=== PATIENT | female | born 1970 | race Caucasian/White ===

== ENCOUNTER → 2017-05-24 16:26 | Outpatient (CLI) | payer OTHER, SELFPAY ==
[2017-05-28 15:43] LABS: HPV Reflexed? NOT INDICATED
== END ==
PROVIDERS: Visit Provider Obstetrics & Gynecology
DX: Z12.4 Encounter for screening for malignant neoplasm of cervix (principal)
CPT/HCPCS: 88175; G0145

== ENCOUNTER 2019-04-23 05:56 | Emergency (ER) | payer OTHER, SELFPAY ==
[2019-04-23 05:56] VITALS: BP 123/59; PULSE 89; RESP 16; TEMP 36.7; O2SAT 96; BMI 35.6
--- NOTE | 2019-04-23 06:08 | CT_ITS ---
HISTORY: LLQ PAIN. Hx of rt oopherectomy. EXAMINATION: CT Abdomen And Pelvis W/O Contrast Injection TECHNIQUE: Helically acquired images were obtained of the abdomen and pelvis without oral or IV contrast as per renal stone protocol. A radiation dose optimization technique was used for this scan. IV Contrast dosage and agent: none Oral contrast: None. COMPARISON: None FINDINGS: Lower thorax: Clear. No pleural effusion or pericardial effusion. No radiopaque gallstones and no biliary dilatation. Limited non-infusion exam. Allowing for this, negative liver, spleen, and pancreas. Both kidneys show normal size and position. No renal or ureteral calculi and no hydronephrosis or hydroureter. The adrenal glands are not enlarged. Abdominal aorta is normal in caliber. No ascites or retroperitoneal lymph node enlargement. GI tract: No obstruction. Normal appendix. Anteverted uterus which is normal in size and tilts to the right. Enlarged left ovary which is lobulated in appearance and measures approximately 9.1 x 5.2 x 5.7 cm. Tiny free fluid within the posterior cul-de-sac. No lymph node enlargement. Poor distention of the urinary bladder. Bones: No acute osseous abnormality. L5 bilateral spondylolysis with secondary grade 1 spondylolisthesis of L5 on S1. Underlying L5 dish S1 degenerative disc disease with disc space narrowing and mild marginal spurring. CT/Abdomen/Pelvis without Cont IMPRESSION: 1. Lobulated, enlarged left ovary which measures up to 9.1 cm in maximal dimension. Tiny free pelvic fluid. Recommend further correlation with pelvic ultrasound including transvaginal ultrasound. 2. No additional significant findings. Normal appendix. Individualized dose optimization techniques were used for this CT. at 0708 Reported and signed by: Steve Guillen MD Electronically Signed: Steve Guillen, at 7:07 EDT Tel , Service support ,
--- NOTE | 2019-04-23 06:09 | ED.DCSUM_ITS ---
History of Present Illness Chief Complaint: Abd Pain Informant: Patient Narrative: Patient stated she developed left-sided lower abdominal pain yesterday. It is a deep dull ache. Moderate in severity. She tried ibuprofen. Associated mild nausea. No diarrhea. No history of diverticulitis or kidney stone. Hurts to push on her anterior stomach. History of unilateral oophorectomy in the past. No fevers or chills. Current severity is moderate. Denies . Past Medical History - Allergies and Home Meds Allergies/Adverse Reactions: Allergies No Known Allergies Allergy (Verified 04/23/19 05:58) Primary Care Physician: Srinivasa Garcia MD [Primary Care Provider] - Prior records reviewed: Yes Past Medical History: None Surgical History: - - oopharectomy Lives: With Family Smoking Status: Never smoker Alcohol: None Drugs: None Review of Systems General: Denies: Chills, Fever, Sweats Eyes: Denies: Visual changes - bilaterally, Diplopia ENT: Denies: Rhinorrhea, Sore throat Cardiovascular: Denies: Chest pain, Palpitations Respiratory: Denies: Dyspnea, Cough, Dyspnea on exertion Gastrointestinal: Reports: Abdominal pain, Nausea. Denies: Vomiting, Diarrhea, Melena, Hematochezia Genitourinary: Denies: Dysuria, Hematuria, Frequency Musculoskeletal: Denies: Back pain, Extremity Pain Skin: Denies: Rash, Wounds Neurological: Denies: Headache, Weakness, Numbness Physical Exam Vital Signs/Narrative: Vital Signs Temp Pulse Resp BP Pulse Ox 04/23/19 05:56 98.1 F 89 16 123/59 H 96 General: Well nourished, Well developed, No Acute Distress Head: Normocephalic, Atraumatic Eyes: Perrl, EOMI ENT: Moist mucous membranes, No rhinorrhea Neck: Supple, Nontender Cardiovascular: Regular rate, Regular rhythm, No murmurs Respiratory: No distress, CTA bilaterally, Chest nontender Abdomen: Soft, Nondistended, Normal bowel sounds, Tender - In the left lower quadrant without guarding or rebound. Negative for: Nontender Back: Nontender, Normal Inspection Extremities: Nontender, No edema Skin: Normal color, No rash Neurological: Alert, Oriented x3, Cranial nerves II-XII grossly intact, Normal Strength, Normal Sensation Psychological: Normal affect, Normal Mood Diagnostic/Tx/Re-eval - Medical Decision Making Patient given IV fluids morphine and Zofran. Lab work and CT abdomen pelvis obtained. Lab work shows a white count greater than 17,000 with a left shift. Urinalysis does show 1+ bacteria with some white blood cells but does have epithelials as well. I will send this for culture however I do not think this is the cause of her pain. She has exquisite tenderness in the left hemipelvis. CT does show a lobulated left ovary with 9 cm diameter. Pelvic ultrasound will be ordered. Patient feels much better after treatment. Patient signed out to the [facility] a.m. physician Dr. Stark for evaluation and treatment. ED Disposition - Plan for ED Patient: Referrals: Srinivasa Garcia MD [Primary Care Provider] -
[2019-04-23 06:24] LABS: Color, Urine Yellow (Yellow); Glucose, Dipstick Normal (Normal); Ketone-Dipstick 15 mg/dl (Negative); Leukocyte Esterase-Dipstick 500 /ul (Negative); Mucous, Urine 0 SEEN /hpf (<or=2+); Nitrite-Dipstick Negative (Negative); Occult Blood-Urine 250 /ul (Negative); Protein-Dipstick 30 mg/dl (Negative); Specific Gravity, Urine 1.015 (1.002-1.030); Urine Bilirubin Dipstick Negative (Negative); Urine Clarity Sl. Cloudy (Clear); Urine Urobilinogen Normal (Normal)
[2019-04-23] MEDS: Ondansetron 4 MG/2 ML Vial IV (06:27)
[2019-04-23] MEDS: Morphine 4 MG/ML Syringe IV (06:27)
[2019-04-23 06:36] LABS: Bacteria 1+ /hpf (None Seen); Red Blood Cells-Urine 10-25 SEEN /hpf (0-5); Squamous Epithelial Cells - UA 10-25 SEEN /hpf (5-10); White Blood Cells 25-50 SEEN /hpf (0-5)
[2019-04-23 06:36] LABS: Absolute Lymphocyte Count 0.95 X10^3/uL (0.83-4.51); Absolute Neutrophil Count 14.5 X10^3/uL (2.0-7.7); Basophil# 0.05 X10^3/uL; Basophil% 0.3 % (0-1); Eosinophil# 0.05 X10^3/uL; Eosinophils% 0.3 % (0-5); Hemoglobin 14.3 g/dL (12.0-15.0); Lymphocyte # 0.95 X10^3/ul (4.0); Lymphocyte % 5.4 % (19-41); Mean Corp Hgb Conc 33.3 g/dL (32-36); Mean Corpuscular Hgb 29.1 pg (27.0-32.0); Mean Corpuscular Volume 87.4 fL (81-99); Mean Platelet Vol. 9.9 fl (6.2-12.0); Monocyte# 1.99 X10^3/uL; Monocyte% 11.2 % (0-10); NRBC Flagged by Analyzer 0 % (0-5); Neutrophil # 14.54 X10^3/uL (2.7-7.7); Neutrophil % 82.1 % (47-70); POSITIVE DIFFERENTIAL YES; Platelet Count 288 K/mm3 (150-450); RBC Distribution Width CV 12.9 % (11.6-14.6); RBC Distribution Width SD 41.1 fl (35.1-43.9); Red Blood Count 4.92 M/mm3 (4.2-5.4); White Blood Count 17.7 K/mm3 (4.4-11.0)
[2019-04-23 06:49] LABS: ALB/GLOB Ratio 0.7 RATIO (0.9-2.4); AST(SGOT) 5 U/L (15-37); Alanine Aminotransfer ALT/SGPT 14 U/L (13-56); Albumin, Serum 3.2 g/dL (3.2-5.0); Alkaline Phosphatase 90 U/L (45-117); Anion Gap 8 (5-15); BUN 8 mg/dL (7-18); Calcium,Total 8.6 mg/dL (8.5-10.1); Chloride 106 mmol/L (98-107); EST Glomerular Filtration Rate 81 mL/min (>60); Est Glom Filt Rate - Afr Amer 98 mL/min (>60); Estimated Creatinine Clearance 64.19 ml/min; Globulin 4.3 g/dL (2.2-4.2); Glucose 121 mg/dL (74-106); Lipase 77 U/L (73-393); Potassium 3.6 mmol/L (3.5-5.1); Protein, Total 7.5 g/dL (6.4-8.2); Sodium Level 139 mmol/L (136-145)
[2019-04-23 07:07] LABS: Differential Indicated SCAN CRITERIA MET
[2019-04-23 07:09] LABS: Differential Comment SCANNED; Platelet Estimate ADEQUATE (ADEQ); Reactive Lymphocyte 1+
--- NOTE | 2019-04-23 07:19 | US_ITS ---
STUDY: ULTRASOUND OF THE FEMALE PELVIS - COMPLETE REASON FOR EXAM: Female, 48 years old. LLQ PAIN -- CT TODAY LMP: April 08, 2019. TECHNIQUE: Transabdominal and Transvaginal TECHNICAL QUALITY: Adequate. COMPARISON: Comparison is made with prior CT scan of the abdomen and pelvis done earlier in the day. FINDINGS: The uterus is anteverted and is in a midline position. The uterus measures 9.2 cm x 5.3 cm x 4.5 cm. Normal uterine cervix. A small amount of endocervical fluid is seen. The endometrium measures 4.0 mm in thickness, and is hyperechoic. There is no demonstrated endometrial mass. There is no demonstrated myometrial mass. I.U.D. - The patient does not have an I.U.D. The right ovary is non-visualized. The left ovary is visualized. The left ovary measures 9.2 cm x 5.3 cm x 5.6 cm. Within it, multiple cysts are seen. The largest cyst measures 4.9 signs by 4.3 signs by 4.8 cm. There is no visualized left adnexal mass or complex lesion. There is normal arterial and normal venous vascularity. There is no fluid in the cul-de-sac. US/Transvaginal Non- IMPRESSION: Enlarged left ovary containing multiple cysts. The largest measures 4.9 cm x 4.3 cm x 4.8 cm. Electronically Signed: You Petty, at 8:29 EDT , Service support ,
[2019-04-23 08:00] VITALS: BP 120/72; PULSE 83; O2SAT 92
[2019-04-23 08:10] LABS: Internal QC Validated? YES +Cl - CLEAR BKGD; Pregnancy, Urine Negative Negative
--- NOTE | 2019-04-23 08:54 | ED.VISSUMM ---
- ER Visit Summary Date of Service: 04/23/19 Chief Complaint: [Left lower abdominal pain/addendum to initial dictation by Dr. Shan Stanton] History of Present Illness: The patient is a 48 F [presented with abdominal pain that started yesterday. Patient has had some nondescript discomfort in her left lower back for a couple days. Patient states she started having pain with urination yesterday. Patient also thought she maybe noticed some blood in the urine. She denies any frequency or urgency. Patient also had her temperature taken last night and it was 99.5 tympanic. She is had no vomiting although she is had some nausea. She had decreased appetite. Care of patient turned over to me after patient was evaluated by Dr. Stanton and it was noted that patient had an elevated white blood cell count of 17,[address] scan that showed a large left ovary measuring over 9 cm. It was recommended that patient have an ultrasound of the pelvis. Patient's urinalysis had a lot of epithelial cells although she did have 500 leukocyte esterase and 25-50 WBCs as well as +1 bacteria. Urine was sent for culture.] Physical Examination: [HEENT-PERRLA, EOMI. Cranial nerves II through XII grossly intact. TMs clear. Mucous membranes moist. No adenopathy. Cardiovascular-regular rate and rhythm without murmur or ectopy Lungs-clear to auscultation, chest wall stable without crepitus or subcu emphysema Abdomen-normoactive bowel sounds, soft. Patient does have mild tenderness over left lower quadrant with some guarding. There is no rebound, rigidity, or peritoneal signs. Extremities-intact ?4, normal range of motion, normal pulses, atraumatic] Test Results: [Pelvic ultrasound obtained showed good blood flow to the left ovary. She did have a 9 cm enlarged left ovary with multiple cysts the largest of which measured 5 cm.] Emergency Department Course and Treatment: [Patient had received initially morphine and Zofran. I did give patient Rocephin 1 g IV. I did give patient Azo p.o.] Treatment Plan: [Patient case was discussed with Dr. Anushka Foster who is on-call for Dr. Doshi. Plan will be to treat patient for possible urinary tract infection and have her follow-up with their office regarding the enlarged left ovary. I suspect her symptoms may be related to urinary tract infection rather than the enlarged ovary. Patient has had prior resection of her right ovary secondary to cysts in the .] Patient will be given a prescription for Sherrill and Zofran as well. Patient will be treated with Bactrim and Pyridium. Disposition: [Discharged home in stable condition. Patient advised to return if fever, vomiting, worsening pain, or condition should worsen anyway.] Impression: [Abdominal pain UTI Left ovarian cyst] This note was generated with [employer] dictation software. It may contain incorrect words, spelling, and punctuation that were not noted in review of the chart prior to signing ED Disposition - Plan for ED Patient: Referrals: Srinivasa Garcia MD [Primary Care Provider] -
--- NOTE | 2019-04-23 08:59 | DCINST.ED_ITS ---
ED Disposition - Plan for ED Patient: Instructions: ABDOMINAL PAIN, Unknown Cause, (Female), Bladder Infection, Female (Adult), Ovarian Cyst Prescriptions: Smz/Tmp Ds [Bactrim Ds] 1 tab PO BID #14 tab Transmission Status: Pending to [facility] Hydrocodone Bitart/Apap 5-325 [[place] 5MG-325MG] 1 tablet PO Q4H PRN PRN 2 Days #10 tablet PRN Reason: Pain Transmission Status: Sent to [facility] Phenazopyridine HCl [Pyridium] 200 mg PO BID PRN PRN #10 tab PRN Reason: Pain Transmission Status: Pending to [facility] Ondansetron [Zofran Odt] 4 mg PO Q8H PRN PRN #10 tab PRN Reason: Nausea Transmission Status: Pending to [facility] Referrals: Srinivasa Garcia MD [Primary Care Provider] - Jimi Doshi MD [STAFF PHYSICIAN] - 3-5 Days
[2019-04-23] MEDS: Phenazopyridine 95 MG Tablet 190 MG PO (09:21)
[2019-04-23] MEDS: Smz/Tmp Ds Tablet 1 TABLET PO (09:21)
[2019-04-23 09:45] LABS: Pathologist Review Reviewed
== END 2019-04-23 09:24 | disposition home or self-care (01) ==
LOC: ED 06:29
PROVIDERS: Emergency Medicine; Emergency Provider Emergency Medicine; PCP Internal Medicine
DX: R10.32 Left lower quadrant pain (principal); N39.0 Urinary tract infection, site not specified; N83.202 Unspecified ovarian cyst, left side
CPT/HCPCS: 74176; 76830; 80053; 81001; 81025; 83690; 85025; 87086; 87088; 93976; 96374; 96375; 99283; A4216; J2405

== ENCOUNTER → 2019-04-25 15:05 | Outpatient (CLI) | payer OTHER, SELFPAY ==
[2019-04-23 05:56] VITALS: BMI 35.6
[2019-04-29 13:09] LABS: Cancer Antigen 125 100.8 U/mL (0.0-38.1)
== END ==
PROVIDERS: PCP Internal Medicine; Visit Provider Obstetrics & Gynecology
DX: N83.9 Noninflammatory disorder of ovary, fallopian tube and broad ligament, unspecified (principal)
CPT/HCPCS: 36415; 86304

== ENCOUNTER 2019-04-26 12:15 | Inpatient (IN) | payer OTHER, SELFPAY ==
[2019-04-25 16:57] LABS: Absolute Lymphocyte Count 0.94 X10^3/uL (0.83-4.51); Absolute Neutrophil Count 11.6 X10^3/uL (2.0-7.7); Basophil# 0.03 X10^3/uL; Basophil% 0.2 % (0-1); Eosinophil# 0.04 X10^3/uL; Eosinophils% 0.3 % (0-5); Hematocrit 39.1 % (37-47); Lymphocyte # 0.94 X10^3/ul (4.0); Lymphocyte % 6.6 % (19-41); Mean Corp Hgb Conc 33.2 g/dL (32-36); Mean Corpuscular Hgb 28.8 pg (27.0-32.0); Mean Corpuscular Volume 86.7 fL (81-99); Mean Platelet Vol. 10.1 fl (6.2-12.0); Monocyte# 1.54 X10^3/uL; Monocyte% 10.8 % (0-10); NRBC Flagged by Analyzer 0 % (0-5); Neutrophil # 11.57 X10^3/uL (2.7-7.7); Neutrophil % 81.5 % (47-70); POSITIVE DIFFERENTIAL YES; Platelet Count 361 K/mm3 (150-450); RBC Distribution Width CV 12.4 % (11.6-14.6); RBC Distribution Width SD 39.6 fl (35.1-43.9); Red Blood Count 4.51 M/mm3 (4.2-5.4); White Blood Count 14.2 K/mm3 (4.4-11.0)
[2019-04-25 17:01] LABS: International Normalized Ratio 1.1; Partial Thromboplast Time 34.5 Seconds (24.1-36.2); Prothrombin Time (Protime)PT. 14.2 SECONDS (11.7-14.9)
[2019-04-25 17:04] LABS: Differential Indicated SCAN CRITERIA MET
[2019-04-25 18:02] LABS: ALB/GLOB Ratio 0.6 RATIO (0.9-2.4); AST(SGOT) 10 U/L (15-37); Alanine Aminotransfer ALT/SGPT 20 U/L (13-56); Alkaline Phosphatase 116 U/L (45-117); Anion Gap 9 (5-15); BUN 12 mg/dL (7-18); BUN/Creat Ratio 15.3 RATIO (10-20); Chloride 98 mmol/L (98-107); Creatinine, Serum 0.78 mg/dL (0.55-1.02); EST Glomerular Filtration Rate 83 mL/min (>60); Est Glom Filt Rate - Afr Amer 100 mL/min (>60); Glucose 101 mg/dL (74-106); Potassium 3.4 mmol/L (3.5-5.1); Sodium Level 133 mmol/L (136-145)
[2019-04-25 18:13] LABS: Differential Comment SCANNED; Platelet Estimate ADEQUATE (ADEQ); Red Cell Morphology NORM C+C NORMAL (NORM C&C)
[2019-04-25 18:25] LABS: Internal QC Validated? YES +Cl - CLEAR BKGD; Pregnancy, Serum, hCG Quali. NEGATIVE Negative
[2019-04-26] VITALS (14 sets, daily range): BP systolic 94–139; BP diastolic 44–64; PULSE 60–88; RESP 16; TEMP 36.6–37.6; O2SAT 92–98; BMI 34.8
[2019-04-26 09:29] LABS: Pathologist Review Reviewed
--- NOTE | 2019-04-26 10:10 | HP.PCM_ITS ---
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 Since Monday, she has been having sharp pain in her left ovary along with UTI symptoms. Monday, 04/22, she went to the ER for care. CT and US revealed that her L ovary is the size of a softball with multiple cysts, one measuring 5 cm. ER diagnosed her with UTI and labs showed high WBC. Pain from L ovarian cyst radiates to her back. Was given antibiotic and pain medication to help, pt has not seen much improvement with pain med (Vicodin). Pt is having trouble with walking due to pain. She has no R ovary, still has uterus. Updated medications and history. ER report scanned to chart. -- Pain from ovarian cysts which began 4 days ago. Emily claims it started during normal activity and has been present 4 days. It occurs all the time. It is located in the left ovary radiating to the back. Emily characterizes the quality of the ovarian cysts as aching, stabbing and painful. Severity is severe and pain worsening. It is aggravated by change of position, standing up and walking and relieved minimally with narcotic pain medications. Associated signs and symptoms are possible UTI, high WBC and pain. Additional comment: cannot tolerate this much longer, U/S shows possible ovarian torsion versus ruptured endometrioma; ate before appt yesterday. ALLERGIES: NKDA MEDICATIONS HISTORY: Current medications prescribed by our practice are: 1. Prometrium 200 mg capsule, One pill by mouth once a day at from the 18th to the of each month Patient is also takin. Bactrim DS 800 mg-160 mg tablet, One pill by mouth once a day 2. hydrocodone bitartrate ER 20 mg capsule, oral only, extended rel 12 hr, 1 pill every 4 hours 3. ondansetron HCl 4 mg tablet, 1 pill every 8 hours 4. phenazopyridine 200 mg tablet, One pill by mouth twice a day REVIEW OF SYSTEMS: GENERAL - Denies fever, or chills SKIN - Denies skin changes EYES - Denies visual changes EARS - Denies difficulty hearing NOSE - Denies nasal congestion or bleeding MOUTH - Denies sore throat or difficulty swallowing NECK - Denies pain or swelling RESPIRATORY - Denies shortness of breath or wheezing CARDIOVASCULAR - Denies palpitations or chest pain GASTROINTESTINAL - Denies nausea, vomiting, diarrhea, constipation GENITOURINARY - Denies dysuria, frequency of urination, incontinence of urine MUSCULOSKELETAL - Denies joint or muscle pain NEUROLOGICAL - Denies localized numbness or weakness PSYCHIATRIC - Denies depression or anxiety ENDOCRINE - Denies heat or cold intolerance, weight loss or gain HEMATO-IMMUNOLOGIC - Denies excesive bleeding with cuts PAST HISTORY: Breast/Ovarian/Colon Cancers - PGF- colon cancer Infections - Chicken pox Illnesses - no serious past illnesses Accidents - no injuries of consequence History of Abnormal PAPS - Denies Hospitalizations - see surgery SURGICAL HISTORY: 1. 05/29/[address] Flanagan 2. Lymph Node removed Left arm 3. R and L ovary partially removed Tumors 4. Removed Scar Tissue opened fallopian tubes MENSTRUAL HISTORY: LMP Known?- YesAmount/Duration - 7 days, Regularity - Regular, Frequency - 28 days, LMP - 04/07/19, Age Onset Menarche - 11 PAST PREGNANCIES: Total Pregnancies - 2; Full Term Pregnancies - 1; Premature - 0; Abortions, Induced - 0; Abortions, Spontaneous - 1; Ectopics - 0; Multiple Births - 0; Living Children - 1 FAMILY HISTORY: Father - Type 2 Diabetes; Mother - Type 2 Diabetes; PaternalGrandparent - Colon Cancer; SOCIAL HISTORY: Alcohol Use - RARELY Smoking - denies smoking Diet - balanced Diet Exercise - regular Seat Belt Use - always Employer - [employer] 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 Illicit Drug Use - denies use of street drugs Sexual Activity - and ACTIVE ONE PARTNER Hours Worked - 40 hours per week Spouse-Sig Other Name - Jayesh Children Name(s) - Mary Control - NONE NOT PREVENTING PHYSICAL EXAMINATION BP- 136/92 Sitting, Right arm, large cuff Weight- 188.60 lbs Height- 61.00 inch BMI:35.71 CONSTITUTIONAL - NAD, well nourished, and well developed SKIN - No rash, lesions, or ulcers HEENT - Normocephalic, PERRLA, EOMI NECK - No nodes, no nuchal rigidity and thyroid normal size and texture LYMPH NODES - Palpation of lymph nodes in neck and groins within normal limits LUNGS - CTA x2 without wheezes, crackles or rales CARDIAC - Regular rate and rhythm without rubs, murmurs, or gallops ABDOMEN - Without hepatosplenomegaly, distention, masses, rebound, or guarding; normal bowel sounds; no hernias and severe tenderness to palpation in left mid to lower abdomen EXTREMITIES - No edema or calf tenderness NEUROLOGICAL - Cranial nerves II-XII grossly intact PSYCHIATRIC - A and O to time, place, person, mood and affect PELVIC - Deferred to severe pain Ultrasound Results (04/25/19): Approach: TRANSABDOMINAL and TRANSVAGINAL. DETAILS OF EXAM UTERUS: 8.4 x 5 x 4.6 cm and is inhomogenous in texture. There appears to be a 1.7 x 1.5 x 2.2 cm posterior submucosal fibroid. ENDOMETRIAL ECHO: .6 cm. RIGHT OVARY: Surgically absent. LEFT OVARY: Within the left ovary is a 5.5 x 5.3 x 5.2 cm complex cyst. This may represent an Endometrioma vs Cystadenoma. Superior to the cyst are two simple appearing cysts that collectively measure 5.5 cm The florentino do appear somewhat thickened. Total size of complex about 9-10 cm. FREE FLUID: Small amount of free fluid in the left adnexa. IMPRESSION/PLAN Can not rule out Ovarian Torsion. With the free fluid seen adjacent to the Ovary, can not rule out ruptured Endometrioma. ASSESSMENT: 1. Abdominal Pain,LLQ 2. Torsion Of Left Ovary And Ovarian Pedicle PLAN BY DIAGNOSIS: 1. Abdominal Pain,LLQ and Torsion Of Left Ovary And Ovarian Pedicle Pt in severe pain from presumed intermittent torsion of left ovary. U/S also suggestive of endometrioma so this may also be a ruptured endometrioma in progress. CA-125 sent. Discussed options at length and plan Emergency Laparotomy for Ovarian Torsion; plan LSO (and MANI given prior RSO). Discussed RBAs of surgery. Discussed possible need to proceed during the night if pain becomes more severe but holding off for now to allow for NPO before surgery.
[2019-04-26 12:54] LABS: Internal QC Validated? YES +Cl - CLEAR BKGD; Pregnancy, Urine Negative Negative
[2019-04-26] MEDS: Lactated Ringers 1,000 ML 100 ML IV (13:06)
--- NOTE | 2019-04-26 14:00 | HYST_PTH ---
PATIENT: IRMA NUNEZ LOC: MS3 U#:[id number] AGE/SX: 48/F ROOM: CO311 RE04/26/[address]: Dr. Jimi Doshi MD : 1970 BED: 1 DIS: 04/28/2019 SPEC #: [id number] RECD: 04/26/19 17:08 STATUS: FLAKITA HEINMissy #: [id number] JOSÉ MIGUEL: 04/26/19 14:[address]: Jimi Doshi DEPT: SURGICAL PATHOLOGY RECD BY: Raulito Duron ENTERED: 04/29/19 07:58 SP TYPE: HYSTERECT OTHR DR: Dr. Srinivasa Garcia MD Tissues: Uterus, NOS Procedures: Surgery Specimen Level V HEADER OPERATION: Total abdominal hysterectomy, left salpingo-oophorectomy PRE-OP DIAGNOSIS: Severe pelvic pain; large complex left ovarian cyst; suspected torsion of left ovary versus rupture of endometrioma TISSUE SUBMITTED: Uterus, cervix, left fallopian tube and ovary MICROSCOPIC DIAGNOSIS Uterus, cervix, left fallopian tube and ovary, hysterectomy and left salpingo-oophorectomy: Cervix - chronic cystic cervicitis. Endometrium - secretory endometrium with marked autolytic changes. Myometrium - diffuse adenomyosis. - A small leiomyoma (0.3 cm in greatest dimension). Serosal surface - a benign subserosal cyst (1 cm in greatest dimension). Left fallopian tube and ovary - consistent with torsion with associated inflammation and reactive changes. See comment. NICA:cristhian 04/30/19 COMMENT Case has been reviewed in consultation with Dr. Olivo who concurs with the above diagnosis. IDC:AM MICROSCOPIC DESCRIPTION Slides are reviewed. GROSS DESCRIPTION Received in fixative is one container labeled with the patient's name and designated uterus. The specimen consists of a hysterectomy specimen consisting of uterus, cervix, attached left fallopian tube and ovary. The uterus with cervix weighs 91 gm and measures 9 x 6 x 4 cm. The serosal surface is ragged. A subserosal cyst is also noted on the posterior surface close to fundus measuring 1 cm in greatest dimension. The ectocervical mucosa is unremarkable. The external os is slit-like in contour. The endocervical canal measures 2.5 cm in length and the endocervical mucosa is bailon, glistening and unremarkable. The triangular endometrial cavity measures 4 cm in length and up to 2.5 cm in width. The endometrium is bailon, glistening without any mass lesion and measures 0.1 cm in thickness. Sections of the uterine wall reveal a small nodule measuring 0.3 cm in greatest dimension close to the serosal surface. The uterine wall measures up to 2 cm in thickness. The left fallopian tube and ovary consists of a tubo-ovarian mass. The identifiable portion of the left fallopian tube measures 2 cm in length and 0.8 cm in diameter. The fimbrial end is not identified. The previously ruptured left ovary measures 8 x 6 x 3 cm and it is almost completely replaced by hemorrhagic cyst. Also present in the container are multiple fragments of blood clot may represent ovarian cyst content measuring in aggregate 5 x 4 x 1 cm. Intermediate Manager sections are submitted in 12 cassettes as follows: 1 - anterior cervix, 2 - posterior cervix, 3 & 4 - anterior uterine wall, 5 & 6 - posterior uterine wall, 7 - small nodular mass and subserosal cyst, 8??grossly identifiable portion of fallopian tube, 9-12 - ovarian cyst including adherent portion of fallopian tube. / NICA:cristhian 04/29/19 TC:5 CPT: 39523
--- NOTE | 2019-04-26 14:03 | OP.PCM_ITS ---
Report of Operation Date of Procedure: 04/26/19 Pre-Operative Diagnosis: Severe Pelvic Pain, Large Complex Left Ovarian Cyst, Suspected Torsion of Left Ovary Versus Rupture of Endometrioma Post-Operative Diagnosis: Severe Pelvic Pain, Large Complex Left Ovarian Cyst, Left Torsion of Ovarian Abscess, Adhesions of Sigmoid Colon to Ovarian Abscess Surgery/Procedure Performed:: Total Abdominal Hysterectomy, Lysis of Adhesions, Left Salpingo-Oophorectomy Description of Surgical Findings:: 9 to 10 cm left ovarian abscess with leaking of foul-smelling pussy fluid into abdominal cavity, 10 cm uterus, absent right fallopian tube and ovary. Adhesi ons of the sigmoid to ovarian abscess. wholesale buyer: Celestine Hansen Type of Anesthesia:: General - Endotracheal Anesthesiologist: Carito Weinberg Specimen's removed: Uterus and left fallopian tube and ovary Drains: Martinez to straight drain Estimated Blood Loss (mL): 200 cc Fluids Replaced: Crystalloid Description of Procedure: Surgeon: Jimi Doshi MD, FACOG Indications: This is a 37-year-old patient who his been having problems with severe left lower quadrant pain and a large complex ovarian cyst noted on ultrasound. Given this the patient desires that we proceed with the above procedure. She has been counseled regarding the risk and indications of this procedure including the possibility of bleeding, infection, and injury to surrounding structures such as bowel bladder. All questions were answered. Procedure: Patient was taken to the operating room where after induction of general anesthesia she was prepped and draped in the usual sterile fashion. A Martinez catheter was placed. The abdomen was entered through a Pfannenstiel incision and peritoneal cavity was entered bluntly. Using blunt dissection the ovarian torsion was removed from the sigmoid and foul-smelling fluid was noted. Aerobic and anaerobic cultures were obtained. Leslye retractor was placed in the pelvis was copiously irrigated with saline. Round ligaments were identified and ligated with 0 Vicryl suture. Infundibulopelvic ligaments were ligated on the left freeing the large left ovarian pedicle. A bladder flap was developed and progressive bites were then taken down on either side of the uterine cervix ligating each pedicle with 0 Vicryl suture. Final bites across the vaginal cuff incorporated the uterosacral ligaments into the vaginal cuff using 0 Vicryl suture and multiple [id number] sutures were placed across the vaginal cuff. Vaginal cuff and pelvic sidewall pedicles were oversewn where necessary to achieve hemostasis and remaining left ovarian tissue was removed as much as possible. Pelvis was again copiously irrigated removing all clot. Surgicel powder was lightly placed across areas of oozing in the left pedicle area to help with postoperative hemostasis. [place] retractor was removed and rectus abdominis muscles were reapproximated in the midline with interrupted 0 Vicryl suture. The area was again copiously irrigated with saline. 0 PDS strata fix was used to close the fascia in a running fashion and subcutaneous tissue was then copiously irrigated with saline solution before closing with 3-0 Vicryl suture. 3-0 Monocryl suture was then used in running fashion to reapproximate skin edges area and Steri-Strips placed across the incision. Patient tolerated the procedure well was taken to recovery room in satisfactory condition; sponge instrument and needle counts were all reportedly correct. Estimated blood loss for the case was 200 cc. Cefotan 2 g IV was given prior to beginning the operative procedure. There were no apparent complications of the surgery. Specimen to pathology was uterus and left fallopian tube and ovary. Grafts/Implants Used: None - Complications None - Admit VTE Documentation VTE Present on Admission: Yes VTE Mechan Device Prophylaxis: SCD's VTE Pharm Prophylaxis ordered?: Yes
--- NOTE | 2019-04-26 14:07 | DCINST_ITS ---
Discharge Diet: No Restrictions Discharge Activity: Return to Normal Activity - do what you feel comfortable, but do not over do it. You may climb stairs, just use caution and hold the railing., May Not Drive - for a few days or while taking narcotic pain medications., May Shower, May Take a Tub Bath May resume sexual activity in: 6 weeks - nothing in the vagina. Lifting Restrictions: 25 pounds for 6 weeks. Call your doctor if your incision/area has: Continuous Slow Oozing, Sudden Increased Bleeding, Increased Pain/ Swelling, Increased Redness, Foul Smelling Discharge Call your doctor if you observe: Fever of 101 or Higher, Inability to urinate, Inability to have a bowel movement, Using more than one pad per hour, - - Some vaginal bleeding may be noted for up to 4-8 weeks. Cleanse incision/area with: - - Let the soapy water run over your incision, rinse and pat dry. Additional Dressing/Incision Instructions:: The white strips (Steri Strips) on your incision will fall off on their own. Allergies/Adverse Reactions: Allergies No Known Allergies Allergy (Verified 04/26/19 12:35) Medications to take at Discharge Ondansetron [Zofran Odt] 4 mg PO Q8H PRN PRN #10 tab 04/23/19 Phenazopyridine HCl [Pyridium] 200 mg PO BID PRN PRN #10 tab 04/23/19 Hydrocodone/Acetaminophen [Hydrocodon-Acetaminophen 5-325] 1 ea PO Q4H PRN 04/25/19 Smz/Tmp Ds [Bactrim Ds] 1 tab PO BID 04/25/19 Docusate Sodium [Colace] 100 mg PO BID PRN PRN #60 cap 04/26/19 Estradiol 1 mg PO DAILY #100 tab 04/26/19 Oxycodone [Oxyir] 5 mg PO Q6H PRN PRN #20 tablet 04/26/19 The following prescriptions were given: Docusate Sodium [Colace] 100 mg PO BID PRN PRN #60 cap PRN Reason: Constipation Transmission Status: Pending to [facility] Estradiol 1 mg PO DAILY #100 tab Transmission Status: Pending to [facility] Oxycodone [Oxyir] 5 mg PO Q6H PRN PRN #20 tablet PRN Reason: Pain Score 6-10/10 Transmission Status: Sent to [facility] Primary Care Physician: Srinivasa Garcia MD [Primary Care Provider] - Test Results: Test results from this visit will be discussed in further detail at your follow- up appointment, if applicable. Please Follow Up With: Jimi Doshi MD - [phone] When: in 2 weeks, please call to make an appointment.
[2019-04-26] MEDS: Dextrose 5%-Lactated Ringers 1,000 ML 150 ML IV (18:25)
[2019-04-26] MEDS: oxyCODONE 5 MG Tablet PO (19:51)
[2019-04-26] MEDS: Enoxaparin 30 MG/0.3 ML Syringe SC (19:52)
[2019-04-26] MEDS: Ondansetron 4 MG/2 ML Vial IV (19:58)
[2019-04-26] MEDS: Ketorolac 30 MG/ML Syringe IV (21:26)
[2019-04-26] MEDS: Acetaminophen 500 MG Tablet 1000 MG PO (22:54)
[2019-04-27] MEDS: Dextrose 5%-Lactated Ringers 1,000 ML 150 ML IV ×2 (01:00→09:24)
[2019-04-27 01:54] VITALS: BP 111/54; PULSE 72; RESP 16; TEMP 36.8; O2SAT 95
[2019-04-27] MEDS: oxyCODONE 5 MG Tablet PO ×4 (01:59→18:11)
[2019-04-27] MEDS: Ondansetron 4 MG/2 ML Vial IV (02:00)
[2019-04-27] MEDS: Ketorolac 30 MG/ML Syringe IV ×2 (03:16→13:26)
[2019-04-27 07:04] LABS: Hematocrit 33.4 % (37-47); Hemoglobin 10.9 g/dL (12.0-15.0); Mean Corp Hgb Conc 32.6 g/dL (32-36); Mean Corpuscular Hgb 29.4 pg (27.0-32.0); Mean Platelet Vol. 9.8 fl (6.2-12.0); Platelet Count 302 K/mm3 (150-450); RBC Distribution Width CV 12.9 % (11.6-14.6); RBC Distribution Width SD 42.3 fl (35.1-43.9); Red Blood Count 3.71 M/mm3 (4.2-5.4); White Blood Count 11.4 K/mm3 (4.4-11.0)
[2019-04-27 07:33] VITALS: O2SAT 95
[2019-04-27 07:49] LABS: Creatinine, Serum 0.84 mg/dL (0.55-1.02); EST Glomerular Filtration Rate 76 mL/min (>60); Est Glom Filt Rate - Afr Amer 92 mL/min (>60); Estimated Creatinine Clearance 61.13 ml/min
[2019-04-27 09:08] VITALS: BP 105/56; PULSE 74; RESP 18; TEMP 36.9; O2SAT 95
--- NOTE | 2019-04-27 09:41 | PCM.PN.OB ---
Subjective: Patient without complaints. Tolerating diet. Pain less than before surgery. Denies flatus. Martinez catheter remains in due to marginal urine output overnight. Objective: Mepilex dressing is clean, dry, with wound intact. Abdominal exam continues to show some tenderness but less than before surgery. - Physical Exam Vitals/I&O's: Vital Signs Temp Pulse Resp BP Pulse Ox 98.4 F 74 18 105/56 L 95 04/27/19 09:08 04/27/19 09:08 04/27/19 09:08 04/27/19 09:08 04/27/19 09:08 Oxygen Flow Rate (L/min) 1 Oxygen Delivery Method Room Air Weight: 184 lb 8.43 oz Body Mass Index (BMI) 34.8 Intake and Output for Last 24 Hours 04/25/19 04/26/19 04/27/19 23:59 23:59 23:59 Intake Total 1163.67 / 1163.67 2887.5 / 2887.5 Output Total 370 / 370 300 / 300 Balance 793.67 / 793.67 2587.5 / 2587.5 Laboratory Results 04/26/19 12:45: Urine Test Negative 04/27/19 06:50: WBC 11.4 H, RBC 3.71 L, Hgb 10.9 L, Hct 33.4 L, MCV 90.0, MCH 29.4, MCHC 32.6, RDW Std Deviation 42.3, RDW Coeff of More 12.9, Plt Count 302, MPV 9.8 04/27/19 06:50: Creatinine 0.84, Estim Creat Clear Calc 61.13, Est GFR (MDRD) Af Amer 92, Est GFR (MDRD) Non-Af 76 Current Medications Acetaminophen (Tylenol) 1,000 mg PO Q8H PRN PRN PRN Reason: Pain Score 1-3/10 or Fever Last Admin: 04/26/19 22:54 Dose: 1,000 mg Documented by: Docusate Sodium (Colace) 100 mg PO BID PRN PRN PRN Reason: Constipation Estrogens Conjugated (Premarin) 0.625 mg PO DAILY THIERRY Hydromorphone HCl (Dilaudid Inj) 0.5 - 1.5 mg IV Q3H PRN PRN PRN Reason: Pain Score 4-10/10 Sodium Chloride () 250 mls @ 15 mls/hr IV .[id number] PRN PRN Reason: Saline Flush Sodium Chloride () 250 mls @ 15 mls/hr IV .[id number] PRN PRN Reason: Additional IVPB Infusion Dextrose/Lactated Ringer's () 1,000 mls @ 150 mls/hr IV .[id number] [facility] Last Admin: 04/27/19 09:24 Dose: 150 mls/hr Documented by: Cefotetan Disodium 1 gm/ (Sodium Chloride) 50 mls @ 100 mls/hr IV Q12 [facility] Influenza Virus Vaccine Quadrival (Flucelvax /Fluzone ) 0.5 ml IM .ONCE ONE Stop: 04/27/19 10:01 Ketorolac Tromethamine (Toradol (Bkc)) 30 mg IV Q6H [facility] Stop: 05/01/19 22:01 Last Admin: 04/27/19 03:16 Dose: 30 mg Documented by: Ondansetron HCl (Zofran) 4 mg IV Q4H PRN PRN PRN Reason: NAUSEA Last Admin: 04/27/19 02:00 Dose: 4 mg Documented by: Oxycodone HCl (Oxyir) 5 - 10 mg PO Q4H PRN PRN PRN Reason: Pain Score 4-10/10 Last Admin: 04/27/19 09:22 Dose: 10 mg Documented by: Simethicone (Mylicon) 80 mg PO [facility] Last Admin: 04/27/19 09:22 Dose: 80 mg Documented by: Sodium Chloride () 10 - 40 ml IV UD PRN PRN Reason: SALINE FLUSH Medical Necessity - Tobacco Use Smoking Status: Never smoker Tobacco Use: Non-smoker Assessment/Plan Doing well postoperative day #1 status post total abdominal hysterectomy and left salpingo-oophorectomy for left ovarian abscess. Continuing present care. We will continue IV antibiotics for 2 more doses and repeat CBC tomorrow morning. Martinez catheter removed and will encourage ambulation today.
--- NOTE | 2019-04-27 12:10 | CM.UR ---
RN CM Assessment. Met face to face with patient introducing myself and explaining my role. No family present. Resting comfortably in bed. confirmed her pharmacy and her physician Patient previously independent at home with all self care. 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 DC Plan: Home. Patient denies needs and no needs anticipated. Encouraged patient to alert nurse to any concerns and that case management will remain available should any needs arise. Verb understanding and agreement to plan. Kuldeep Chavez RN, [facility].
[2019-04-27] MEDS: 0.9% Saline Lock 10 ML Syringe IV (13:22)
[2019-04-27] MEDS: Enoxaparin 30 MG/0.3 ML Syringe SC (13:28)
[2019-04-27] MEDS: Estrogens,Conj. 0.625 MG Tablet PO (13:35)
[2019-04-27 16:16] VITALS: BP 107/55; PULSE 86; RESP 16; TEMP 36.8; O2SAT 93
[2019-04-27] MEDS: Ketorolac 10 MG Tablet PO ×2 (17:54→23:51)
--- NOTE | 2019-04-27 18:17 | NURSING ---
Walked to bathroom, voided, then walked in dobson. Sitting in chair at this time.
[2019-04-27 21:11] VITALS: BP 109/57; PULSE 90; RESP 18; TEMP 36.7; O2SAT 93
[2019-04-27] MEDS: Docusate Sodium 100 MG Capsule PO (21:23)
[2019-04-27] MEDS: Acetaminophen 500 MG Tablet 1000 MG PO (21:23)
[2019-04-28] VITALS (7 sets, daily range): BP systolic 109–136; BP diastolic 54–64; PULSE 62–81; RESP 18–22; TEMP 36.4–36.6; O2SAT 80–94
[2019-04-28] MEDS: Ketorolac 10 MG Tablet PO ×2 (06:37→14:57)
[2019-04-28] MEDS: Enoxaparin 30 MG/0.3 ML Syringe SC (06:38)
[2019-04-28 06:41] LABS: Absolute Lymphocyte Count 0.96 X10^3/uL (0.83-4.51); Absolute Neutrophil Count 8.6 X10^3/uL (2.0-7.7); Basophil# 0.02 X10^3/uL; Basophil% 0.2 % (0-1); Eosinophils% 2.7 % (0-5); Hematocrit 32.8 % (37-47); Hemoglobin 10.4 g/dL (12.0-15.0); Lymphocyte # 0.96 X10^3/ul (4.0); Lymphocyte % 8.6 % (19-41); Mean Corp Hgb Conc 31.7 g/dL (32-36); Mean Corpuscular Hgb 28.7 pg (27.0-32.0); Mean Corpuscular Volume 90.4 fL (81-99); Mean Platelet Vol. 9.6 fl (6.2-12.0); Monocyte# 1.17 X10^3/uL; Monocyte% 10.5 % (0-10); NRBC Flagged by Analyzer 0 % (0-5); Neutrophil # 8.56 X10^3/uL (2.7-7.7); Platelet Count 305 K/mm3 (150-450); RBC Distribution Width CV 13.4 % (11.6-14.6); RBC Distribution Width SD 44.2 fl (35.1-43.9); Red Blood Count 3.63 M/mm3 (4.2-5.4); White Blood Count 11.1 K/mm3 (4.4-11.0)
--- NOTE | 2019-04-28 07:39 | NURSING ---
Up to the bathroom. Voided and now walking dobson. C/o MENDOZA. Will give Tylenol.
[2019-04-28] MEDS: Acetaminophen 500 MG Tablet 1000 MG PO (07:45)
--- NOTE | 2019-04-28 10:24 | PN.OBGYN_ITS ---
Subjective: Patient without complaints. Tolerating diet well. Minimal vaginal bleeding. Positive flatus. Moderate abdominal tenderness continues but not worsening. Feeling better and has been up walking in halls. Some issues with her O2 sats into the high 80s when she is resting and not moving. This is been an issue since surgery but not worsening. Patient does not complain of shortness of breath and shows no symptoms from this. Objective: Wound is clean, dry, intact after removal of Mepilex dressing. No evidence of infection. Good bowel sounds. Lungs are clear to auscultation x2. White count and hemoglobin stable. - Physical Exam Vitals/I&O's: Vital Signs Temp Pulse Resp BP Pulse Ox 97.9 F 75 18 125/62 H 92 04/28/19 07:48 04/28/19 07:48 04/28/19 07:48 04/28/19 07:48 04/28/19 07:48 Oxygen Flow Rate (L/min) 2 Oxygen Delivery Method Room Air Weight: 184 lb 8.43 oz Body Mass Index (BMI) 34.8 Intake and Output for Last 24 Hours 04/26/19 04/27/19 04/28/19 23:59 23:59 23:59 Intake Total 1163.67 / 1163.67 5256.25 / 5256.25 205.75 / 205.75 Output Total 370 / 370 1350 / 1350 Balance 793.67 / 793.67 3906.25 / 3906.25 205.75 / 205.75 Microbiology Past 72 Hours 04/26/19 14:42 Incision/Surgical Site Gram Stain - Final 04/26/19 14:42 Incision/Surgical Site Wound Culture - Preliminary No growth-Final to follow Laboratory Results 04/28/19 06:27: WBC 11.1 H, RBC 3.63 L, Hgb 10.4 L, Hct 32.8 L, MCV 90.4, MCH 28.7, MCHC 31.7 L, RDW Std Deviation 44.2 H, RDW Coeff of More 13.4, Plt Count 305, MPV 9.6, Immature Gran % (Auto) 1.000 H, Neut % (Auto) 77.0 H, Lymph % (Auto) 8.6 L, [place]wood % (Auto) 10.5 H, Eos % (Auto) 2.7, Baso % (Auto) 0.2, Absolute Neuts (auto) 8.6 H, Absolute Lymphs (auto) 0.96, Nucleated RBC % 0 Current Medications Acetaminophen (Tylenol) 1,000 mg PO Q8H PRN PRN PRN Reason: Pain Score 1-3/10 or Fever Last Admin: 04/28/19 07:45 Dose: 1,000 mg Documented by: Bisacodyl (Dulcolax) 10 mg RECTAL BID PRN PRN Reason: Constipation Docusate Sodium (Colace) 100 mg PO BID PRN PRN PRN Reason: Constipation Last Admin: 04/27/19 21:23 Dose: 100 mg Documented by: Enoxaparin Sodium (Lovenox) 30 mg SC DAILY@0600 [facility] Last Admin: 04/28/19 06:38 Dose: 30 mg Documented by: Estrogens Conjugated (Premarin) 0.625 mg PO DAILY [facility] Last Admin: 04/27/19 13:35 Dose: 0.625 mg Documented by: Sodium Chloride () 250 mls @ 15 mls/hr IV .[id number] PRN PRN Reason: Saline Flush Last Infusion: 04/28/19 03:53 Dose: 0 mls/hr Documented by: Sodium Chloride () 250 mls @ 15 mls/hr IV .[id number] PRN PRN Reason: Additional IVPB Infusion Ketorolac Tromethamine (Toradol) 10 mg PO Q6 [facility] Stop: 05/02/19 16:46 Last Admin: 04/28/19 06:37 Dose: 10 mg Documented by: Ondansetron HCl (Zofran) 4 mg IV Q4H PRN PRN PRN Reason: NAUSEA Last Admin: 04/27/19 02:00 Dose: 4 mg Documented by: Oxycodone HCl (Oxyir) 5 mg PO Q6H PRN PRN PRN Reason: Pain Score 4-10/10 Simethicone (Mylicon) 80 mg PO [facility] Last Admin: 04/28/19 07:45 Dose: 80 mg Documented by: Sodium Chloride () 10 - 40 ml IV UD PRN PRN Reason: SALINE FLUSH Last Admin: 04/27/19 13:22 Dose: 10 ml Documented by: Medical Necessity - Tobacco Use Smoking Status: Never smoker Tobacco Use: Non-smoker Assessment/Plan Doing well postoperative day #2 status post total abdominal hysterectomy and left salpingo-oophorectomy for left ovarian abscess. Encourage Volurex use. Suspect patient's O2 sats may be in the low to mid 90s ongoing. We will continue to monitor and if stable and not needing oxygen will discharge to home later today. Home-going instructions given. Follow-up in 2 and 6 weeks.
[2019-04-28] MEDS: oxyCODONE 5 MG Tablet PO (12:26)
[2019-04-28] MEDS: Estrogens,Conj. 0.625 MG Tablet PO (12:26)
[2019-04-28] MEDS: Cephalexin 500 MG Capsule PO (12:29)
== END 2019-04-28 15:43 | disposition home or self-care (01) | DRG 742 ==
LOC: ACINP 12:17 → MS3 14:41
PROVIDERS: Admitting Provider Obstetrics & Gynecology; PCP Internal Medicine; Referring Provider Obstetrics & Gynecology; Visit Provider Obstetrics & Gynecology
PROC: 0UT90ZZ Resection of Uterus, Open Approach (ICD-10-PCS; CPT 58150; principal; 2019-04-26 13:40)
DX: N70.92 Oophoritis, unspecified (principal); N83.512 Torsion of left ovary and ovarian pedicle; N83.202 Unspecified ovarian cyst, left side; Z23 Encounter for immunization; K66.0 Peritoneal adhesions (postprocedural) (postinfection); Z90.721 Acquired absence of ovaries, unilateral; Z90.79 Acquired absence of other genital organ(s)
CPT/HCPCS: 36415; 80053; 81025; 82565; 84703; 85025; 85027; 85610; 85730; 86850; 86900; 86901; 87070; 87075; 87077; 87205; 88307; 99251; J7040; J7050; J7120; 90686; A4216; G0463; J2405

== ENCOUNTER → 2019-06-13 15:43 | Outpatient (CLI) | payer OTHER, SELFPAY ==
[2019-04-26 17:39] VITALS: BMI 34.8
[2019-06-13 16:24] LABS: D-Dimer Quantitative (DVT/PE) 0.52 FEU/ug/m (0.27-0.49)
== END ==
PROVIDERS: PCP Internal Medicine; Referring Provider Nurse Practitioner; Visit Provider Nurse Practitioner
DX: R06.02 Shortness of breath (principal); Z90.710 Acquired absence of both cervix and uterus
CPT/HCPCS: 85379

== ENCOUNTER → 2019-07-08 15:03 | Outpatient (CLI) | payer OTHER, SELFPAY ==
[2019-04-26 17:39] VITALS: BMI 34.8
--- NOTE | 2019-07-08 15:05 | BI_ITS ---
MAMMOGRAPHY - BILATERAL SCREENING REASON FOR EXAM: Female, 48 years old. Routine annual screening examination. PERTINENT HISTORY: Non-contributory. History of bilateral breast reduction surgery. TECHNIQUE: Digital bilateral breast andrew (3D mammographic acquisition) in the CC and MLO projections. 2-D mediolateral oblique (MLO) and craniocaudad (CC) views of both breasts were obtained. CAD: Full Field Digital Mammography with Computer Added Detection was performed. COMPARISON: None. Baseline examination. FINDINGS: Breast Composition: The breasts are heterogeneously dense, which may obscure small masses. There are no dominant masses or suspicious calcifications. No other significant abnormalities are identified. BI/SCREEN MAMM (CAD) W/ANDREW BILAT IMPRESSION: Negative screening mammogram. Yearly followup mammogram recommended. (A) ASSESSMENT CATEGORY: BIRADS Category 1: Negative. A letter regarding these results will be sent to the patient by the facility within 30 days. Approximately 10% of breast cancers are not detected by mammography. A normal mammogram should not delay biopsy of a clinically suspicious abnormality. [id number] Electronically Signed: You Petty, at 8:36 EDT , Service support ,
== END ==
PROVIDERS: PCP Internal Medicine; Referring Provider Obstetrics & Gynecology; Visit Provider Obstetrics & Gynecology
DX: Z12.31 Encounter for screening mammogram for malignant neoplasm of breast (principal)
CPT/HCPCS: 77063; 77067

== ENCOUNTER → 2022-06-08 | Outpatient (CLI) | payer OTHER, SELFPAY ==
--- NOTE | 2022-06-08 14:46 | RAD_ITS ---
INDICATION: Chronic cough, pneumonia EXAMINATION/TECHNIQUE: X-RAY - XR Chest 2 Views COMPARISON: None. FINDINGS: Slight increase in interstitial markings mostly in the lung bases. The cardiomediastinal silhouette is unremarkable. No pleural effusion or pneumothorax. No acute osseous abnormalities. RAD/Chest PA and Lateral IMPRESSION: Slight increase in interstitial markings mostly in the lung bases may represent edema and/or infection. Electronically Signed: Abhilash Bishop MD at 18:01 EDT ,
[2022-06-08 14:48] LABS: Absolute Lymphocyte Count 2.04 X10^3/uL (0.83-4.51); Absolute Neutrophil Count 4.3 X10^3/uL (2.0-7.7); Basophil# 0.04 X10^3/uL; Basophil% 0.5 % (0-1); Eosinophil# 0.25 X10^3/uL; Eosinophils% 3.4 % (0-5); Hematocrit 44.5 % (37-47); Hemoglobin 15.2 g/dL (12.0-15.0); Lymphocyte # 2.04 X10^3/ul (0.83-4.51); Lymphocyte % 27.5 % (19-41); Mean Corp Hgb Conc 34.2 g/dL (32-36); Mean Corpuscular Hgb 29.7 pg (27.0-32.0); Mean Corpuscular Volume 87.1 fL (81-99); Mean Platelet Vol. 9.9 fl (6.2-12.0); Monocyte# 0.78 X10^3/uL; Monocyte% 10.5 % (0-10); NRBC Flagged by Analyzer 0 % (0-5); Platelet Count 345 K/mm3 (150-450); RBC Distribution Width CV 12.2 % (11.6-14.6); RBC Distribution Width SD 39.3 fl (35.1-43.9); Red Blood Count 5.11 M/mm3 (4.2-5.4); White Blood Count 7.4 K/mm3 (4.4-11.0)
[2022-06-08 16:15] LABS: Thyroid Stim Hormone (TSH) 2.32 uIU/mL (0.358-3.74)
[2022-06-14 14:10] LABS: B. pertussis IgA 1.8 index (0.0-0.9); B. pertussis IgM < 1.0 index (0.0-0.9); Immunoglobulin E 37 IU/mL (6-495)
== END | disposition home or self-care (01) ==
PROVIDERS: PCP Internal Medicine; Referring Provider Internal Medicine; Visit Provider Internal Medicine
DX: R05.3 Chronic cough (principal); R53.83 Other fatigue
CPT/HCPCS: 36415; 71046; 82785; 84443; 85025; 86615

== ENCOUNTER → 2022-07-08 | Outpatient (CLI) | payer OTHER, SELFPAY ==
--- NOTE | 2022-07-10 06:46 | PFT ---
INTRODUCTION: The patient is a 51-year-old female that presents for pulmonary function studies secondary to a diagnosis of chronic cough. Respiratory therapy reported good patient effort. Bronchodilators were used during testing. INTERPRETATION: Forced expiration spirometry demonstrates no evidence of a large airways obstructive ventilatory defect. There was no significant response to aerosolized bronchodilators. Spirograms are of good quality and plateau normally. Body plethysmography was performed and revealed a decreased TLC to 3.10 L, 71% of predicted, indicative of a mild restrictive ventilatory impairment. Diffusing capacity by single breath CO was within normal limits. IMPRESSION: Isolated mild restrictive ventilatory impairment.
== END | disposition home or self-care (01) ==
LOC: PSN 09:27
PROVIDERS: PCP Student in an Organized Health Care Education/Training Program; Referring Provider Internal Medicine; Visit Provider Internal Medicine
DX: R05.3 Chronic cough (principal)
CPT/HCPCS: 94060; 94726; 94729

== ENCOUNTER → 2022-07-14 | Outpatient (CLI) | payer OTHER, SELFPAY | END | disposition home or self-care (01) | LOC: SL 12:32 | PROVIDERS: PCP Student in an Organized Health Care Education/Training Program; Referring Provider Internal Medicine; Visit Provider Internal Medicine | DX: G47.33 Obstructive sleep apnea (adult) (pediatric) (principal) | CPT/HCPCS: 95806 ==

== ENCOUNTER → 2022-08-04 | Outpatient (CLI) | payer OTHER, SELFPAY ==
--- NOTE | 2022-08-04 13:51 | CT_ITS ---
STUDY: CT CHEST WITHOUT CONTRAST REASON FOR EXAM: Female, 51 years old. atelectasis. Cough and shortness of breath. RADIATION DOSAGE (If Supplied By Facility): CTDIvol = ( 18.88 ) mGy, DLP = ( 556.74 ) mGycm TECHNIQUE: Transaxial imaging was performed without the administration of intravenous contrast material. Individualized dose optimization techniques were used for this CT. COMPARISON: Comparison is made with prior chest radiograph dated June 08, 2022. FINDINGS: CHEST The lungs are normal. There is no demonstrated pleural abnormality. Coronary artery calcification is not seen. Normal mediastinum. Normal hilar regions. Normal unenhanced pulmonary arteries. Normal aorta arch and descending thoracic aorta. Normal osseous structures. Diffuse fatty infiltration of the liver. CT/Chest without Contrast IMPRESSION: Normal unenhanced CT chest. Fatty infiltration of the liver. Electronically Signed: You Petty MD at 15:13 EDT ,
== END | disposition home or self-care (01) ==
LOC: CT 13:51
PROVIDERS: PCP Student in an Organized Health Care Education/Training Program; Referring Provider Internal Medicine; Visit Provider Internal Medicine
DX: J98.11 Atelectasis (principal)
CPT/HCPCS: 71250